=== PATIENT | female | born 1970 | race Caucasian/White ===

== ENCOUNTER 2018-07-25 12:45 | Inpatient (IN) | payer MEDICAID, OTHER ==
[~2018-07-25] VITALS: Ht 157.5 cm; Wt 85.4 kg
--- NOTE | 2018-07-25 13:20 | EN ---
Date/Time of Note Date/Time of Note DATE: 07/25/18 TIME: 13:19 ER Progress Note ED 3 medical screening examination - 48-year-old female presents with 3-day history right upper quadrant abdominal pain, nausea. No previous history of gallstones. Ultrasound and laboratory work initiated via provider in triage. MEGHAN COOK MD July 25, 2018 13:20
--- NOTE | 2018-07-25 13:42 | ERD ---
ER Documentation Chief Complaint Chief Complaint RUQ ABDOMINAL PAIN THAT RADIATES TO THE BACK WITH N/V SINCE WEDNESDAY. HPI The patient is a 48-year-old female, presenting to the ER because of right upper quad abdominal pain radiating to the back for the last 3 days worse today, also with vomiting of mostly mucus, nonbloody/nonbilious. She denies similar symptoms previously, fever, chills, neck pain, chest pain, edema, dysuria, yvrose rrhea. She does not smoke nor drink, LMP was July 01, 2018 Medical/surgical history: None ROS All systems reviewed and are negative except as per history of present illness. Medications Home Meds No Active Prescriptions or Reported Meds Allergies Allergies: Coded Allergies: No Known Drug Allergy (Verified Allergy, Unknown, 07/25/18) Physical Exam Vitals Vital Signs Date Temp Pulse Resp B/P (MAP) Pulse Ox O2 O2 Flow FiO2 Time Delivery Rate 07/25/18 99.7 90 18 166/77 98 13:01 (106) Physical Exam Const: No acute distress. Head: Atraumatic. Eyes: Normal Conjunctiva. ENT: Normal External Ears, Nose and Mouth. Neck: Full range of motion. No meningismus. Resp: Clear to auscultation bilaterally. Cardio: Regular rate and rhythm. Abd: Soft, non distended, normal bowel sounds, right upper quadrant tenderness, no RLQ/ rigidity/rebound/CVA tenderness Skin: No petechiae or rashes. Back: No midline or flank tenderness. Ext: No cyanosis, or edema. Neur: Awake and alert. No focal deficit Psych: Normal Mood and Affect. Result Diagram: 07/25/18 1331 07/25/18 1331 Results 24 hrs Laboratory Tests Test 07/25/18 13:31 07/25/18 13:38 White Blood Count 13.1 10^3/ul Red Blood Count 4.61 10^6/ul Hemoglobin 14.5 g/dl Hematocrit 43.9 % Mean Corpuscular Volume 95.2 fl Mean Corpuscular Hemoglobin 31.5 pg Mean Corpuscular Hemoglobin Concent 33.0 g/dl Red Cell Distribution Width 12.2 % Platelet Count 378 10^3/UL Mean Platelet Volume 9.8 fl Immature Granulocytes % 0.500 % Neutrophils % 76.1 % Lymphocytes % 17.0 % Monocytes % 5.0 % Eosinophils % 0.6 % Basophils % 0.8 % Nucleated Red Blood Cells % 0.0 /100WBC Immature Granulocytes # 0.060 10^3/ul Neutrophils # 10.0 10^3/ul Lymphocytes # 2.2 10^3/ul Monocytes # 0.7 10^3/ul Eosinophils # 0.1 10^3/ul Basophils # 0.1 10^3/ul Nucleated Red Blood Cells # 0.0 10^3/ul Sodium Level 140 mmol/L Potassium Level 4.0 mmol/L Chloride Level 104 mmol/L Carbon Dioxide Level 24 mmol/L Anion Gap 12 Blood Urea Nitrogen 12 mg/dl Creatinine 0.85 mg/dl Est Glomerular Filtrat Rate mL/min > 60 mL/min Glucose Level 104 mg/dl Calcium Level 9.2 mg/dl Total Bilirubin 0.5 mg/dl Direct Bilirubin 0.00 mg/dl Indirect Bilirubin 0.5 mg/dl Aspartate Amino Transf (AST/SGOT) 40 IU/L Alanine Aminotransferase (ALT/SGPT) 46 IU/L Alkaline Phosphatase 104 IU/L Total Protein 8.3 g/dl Albumin 4.2 g/dl Globulin 4.10 g/dl Albumin/Globulin Ratio 1.02 Lipase 63 U/L POC Beta HCG, Qualitative NEGATIVE Current Medications Medications Dose Sig/Krishna Start Time Status Last (Trade) Ordered Route PRN Stop Time Admin Dose Reason Admin Morphine 2 mg ONCE STAT 07/25/18 DC 07/25/18 Sulfate IV 14:04 14:10 (morphine) 07/25/18 14:06 Ondansetron 4 mg ONCE STAT 07/25/18 DC 07/25/18 HCl (Zofran IV 14:04 14:10 Inj) 07/25/18 14:06 Piperacillin 100 ml @ ONCE ONCE 07/25/18 DC 07/25/18 Sod/ 200 mls/hr IVPB 14:30 14:10 Tazobactam 07/25/18 14:59 Sod Sodium 1,000 ml @ Q1H ONCE 07/25/18 DC 07/25/18 Chloride 1,000 mls/hr IV 14:30 14:43 07/25/18 15:29 Procedures/MDM [place] [id number] Radiology Main Line: [phone] DIAGNOSTIC IMAGING REPORT Patient: WILMER RANDOLPH : 1970 Age: 48 Sex: F MR #: [id number] DOS: 07/25/18 1317 Ordering MD: MEGHAN COOK MD Location: E/R Room/Bed: PROCEDURE: US Abdomen (right upper quadrant). CLINICAL INDICATION: Abdominal pain TECHNIQUE: Multiple real-time longitudinal and transverse images of the right upper quadrant of the abdomen were acquired utilizing a curved array transducer. Images were reviewed on a high-resolution PACS workstation. COMPARISON: None FINDINGS: The liver is normal in size and echogenicity without focal mass or intrahepatic biliary dilatation. Stones and sludge are present in the gallbladder. The gallbladder wall is thickened measuring up to 5.5 mm. The gallbladder is distended. No intra or extrahepatic biliary dilatation is seen. The common bile duct measures 5.6 mm in maximal dimension. The visualized portions of the pancreas are unremarkable with obscuration of the tail of the pancreas. No free fluid is identified. The right kidney measures 8.9 cm in length. There is normal echogenicity within the right kidney. There is no perinephric fluid collection. No hydronephrosis, mass, or calculus is seen. IMPRESSION: 1. Gallbladder stones and sludge with gallbladder wall thickening, may represent acute calculus cholecystitis in the correct clinical setting. RPTAT: JJ .Isac Shah MD, MD Date Time Electronically viewed and signed by .Isac Shah MD, on 07/25/2018 13:54 .A/ CC: MEGHAN COOK MD [id number] MEDICAL MAKING DECISION: The patient is a 48-year-old female, presenting with acute cholecystitis, was treated with Zosyn IV for acute cholecystitis, morphine 2 mg IV, Dilaudid 0.5 mg IV for pain, Zofran 4 mg IV for nausea and 1 L normal saline for clinical dehydration with good response. The differential diagnoses considered include but are not limited to cholelithiasis, cholecystitis, choledocholithiasis, cholangitis, pancreatitis, hepatitis, gastritis, peptic ulcer disease, gastric ulcer, appendicitis, cystitis, diverticulitis, partial small bowel obstruction. Consultation: I discussed the patient with the on-call general surgeon Dr. Smith at 2:30 PM, who was made aware of the lab, the treatment, the patient condition and he accepted the consult Departure Diagnosis: Primary Impression: Cholecystitis Condition: Stable Comments I discussed the findings with the patient. I discussed the patient with Dr Fierro at 3:20pm , who was made aware of the lab, the treatment, the patient condition. The patient is admitted to [facility] Disclaimer: Inadvertent spelling and grammatical errors are likely due to EHR/dictation software use and do not reflect on the overall quality of patient care. Also, please note that the electronic time recorded on this note does not necessarily reflect the actual time of the patient encounter. SEN CABALLERO MD July 25, 2018 13:42
[2018-07-25] MEDS ORDERED: ONDANSETRON 4 MG INJ IV STA (14:04)
[2018-07-25] MEDS ORDERED: morphine 2 MG INJ IV STA (14:04)
[2018-07-25] MEDS ORDERED: PIPER-TAZO 3.375 GM IV (PMX) 100 ML IVPB ONE (14:30)
[2018-07-25] MEDS ORDERED: SOD CHLORIDE 0.9% 1,000 ML IV ONE (14:30)
[2018-07-25] MEDS ORDERED: HYDROmorphONE 0.5 MG/0.5 ML SYG IV STA (15:38)
--- NOTE | 2018-07-25 16:49 | CONS ---
Assessment/Plan Assessment/Plan Assessment/Plan (Daily) Acute cholecystitis Plan: Admit. Laparoscopic cholecystectomy tomorrow morning. I have discussed t he procedure, outcomes, expectations, alternatives and risks in detail with the patient who has an excellent understanding of the nature of her situation and agrees to the proposed plan of therapy as outlined. Consultation Date/Type/Reason Admit Date/Time Date of Consultation: July 25, 2018 Type of Consult General surgery Reason for Consultation Acute cholecystitis Date/Time of Note DATE: 07/25/18 TIME: 16:45 Hx of Present Illness The patient is an otherwise healthy 48-year-old female with no familial history of gallbladder disease. She presents to the emergency room with a 3-day history of midepigastric and right upper quadrant abdominal pain radiating to the back. In the emergency room she was noted to have an elevated white blood cell count, a tender right upper quadrant and abdominal ultrasound showing gallstones and gallbladder wall thickening compatible with acute cholecystitis. The patient has had no fevers, chills or jaundice. Review of systems: HEENT: Within normal limits Pulmonary: No history of asthma, pneumonia or shortness of breath Cardiac: No history of chest pain, [place] or arrhythmia Abdomen: As in the HPI. No previous abdominal surgery Extremity: Unremarkable Past Medical History Medical History: no pertinent history Home Meds No Active Prescriptions or Reported Meds Allergies: Coded Allergies: No Known Drug Allergy (Verified Allergy, Unknown, 07/25/18) Past Surgical History Past Surgical Hx: no surgical history Family History Significant Family History: no pertinent family hx Social History Alcohol Use: none Exam/Review of Systems Exam Vitals Vital Signs Date Temp Pulse Resp B/P (MAP) Pulse Ox O2 O2 Flow FiO2 Time Delivery Rate 07/25/18 71 18 137/74 100 Room Air 15:30 (95) 07/25/18 99.7 13:01 Constitutional: alert, oriented Psych: no complaints Head: normocephalic Eyes: nl conjunctiva ENMT: nl external ears & nose Neck: supple Respiratory: clear to auscultation Cardiovascular: regular rate and rhythm Gastrointestinal: tender (Tender right upper quadrant and a positive Holman sign) Musculoskeletal: nl extremities to inspection Extremities: normal pulses 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 Results Result Diagram: 07/25/18 1331 07/25/18 1331 Results 24hrs Laboratory Tests Test 07/25/18 13:31 07/25/18 13:38 White Blood Count 13.1 H Red Blood Count 4.61 Hemoglobin 14.5 Hematocrit 43.9 Mean Corpuscular Volume 95.2 Mean Corpuscular Hemoglobin 31.5 Mean Corpuscular Hemoglobin Concent 33.0 Red Cell Distribution Width 12.2 Platelet Count 378 Mean Platelet Volume 9.8 Immature Granulocytes % 0.500 H Neutrophils % 76.1 Lymphocytes % 17.0 Monocytes % 5.0 Eosinophils % 0.6 Basophils % 0.8 Nucleated Red Blood Cells % 0.0 Immature Granulocytes # 0.060 H Neutrophils # 10.0 H Lymphocytes # 2.2 Monocytes # 0.7 Eosinophils # 0.1 Basophils # 0.1 Nucleated Red Blood Cells # 0.0 Sodium Level 140 Potassium Level 4.0 Chloride Level 104 Carbon Dioxide Level 24 Anion Gap 12 Blood Urea Nitrogen 12 Creatinine 0.85 Est Glomerular Filtrat Rate mL/min > 60 Glucose Level 104 Calcium Level 9.2 Total Bilirubin 0.5 Direct Bilirubin 0.00 Indirect Bilirubin 0.5 Aspartate Amino Transf (AST/SGOT) 40 Alanine Aminotransferase (ALT/SGPT) 46 Alkaline Phosphatase 104 Total Protein 8.3 H Albumin 4.2 Globulin 4.10 H Albumin/Globulin Ratio 1.02 Lipase 63 POC Beta HCG, Qualitative NEGATIVE GARRY CRENSHAW MD July 25, 2018 16:49
[2018-07-25] MEDS ORDERED: PIPER-TAZO 3.375 GM IV (PMX) 100 ML IVPB SCH (17:30)
[2018-07-25 18:00] VITALS: BMI 12.7
--- NOTE | 2018-07-25 18:19 | HP ---
DATE OF ADMISSION: 07/25/2018 CHIEF COMPLAINT: Abdominal pain. HISTORY OF PRESENT ILLNESS: A 48-year-old female with unremarkable past medical history, presents to emergency room with complaint of abdominal pain in the midepigastric and right upper quadrant region for the last 2 to 3 days prior to admission. The patient reports that pain radiates to her back. S he has had mild nausea, but no vomiting. No fever, no chills. No hematemesis. No bright red blood per rectum or melena. Initial evaluation included ultrasound of the gallbladder. This showed gallst ones and sludge and gallbladder wall thickening. White blood cell count is elevated at 213,100. Bas ic metabolic panel and liver function tests were all within normal limits. Beta HCG was also negativ e. The patient was evaluated by Dr. Smith. PAST MEDICAL HISTORY: None. PAST SURGICAL HISTORY: None. MEDICATIONS PRIOR TO ADMISSION: None. FAMILY HISTORY: There is no family history of gallbladder disease. PHYSICAL EXAMINATION: GENERAL: Well-developed, well-nourished female who is in no apparent distress. VITAL SIGNS: Stable. She is afebrile. HEENT: Extraocular muscles are intact. Pupils are equal and reactive to light bilaterally. Sclerae are anicteric. Oropharynx is clear and moist. NECK: Supple. No JVD, no carotid bruits. LUNGS: Clear to auscultation bilaterally. CARDIAC: Regular rate and rhythm. No murmurs, rubs or gallops. ABDOMEN: Soft, right upper quadrant and midepigastric tenderness to palpation. Normoactive bowel so unds. EXTREMITIES: No clubbing, cyanosis or edema. NEUROLOGICAL: Grossly nonfocal. LABORATORY DATA: Hemoglobin was 14.5, platelet count of 378,000. ASSESSMENT: A 48-year-old female with acute cholecystitis. PLAN: Admit to med/surg. Keep n.p.o. IV fluid hydration. IV Zosyn. Pain control. Antiemetics. rn call center to OR in a.m. for laparoscopic cholecystectomy. DVT prophylaxis with bilateral SCDs. Dictated By: FRANCIS HASSAN MD SK/NTS Conf#: [id number] DID#: [id number] CC: SEN CABALLERO MD;*EndCC*
[2018-07-25 18:40] VITALS: BP 129/67; PULSE 79; RESP 17
[2018-07-25] MEDS: ONDANSETRON 4 MG INJ IV PRN (18:48)
[2018-07-25] MEDS: morphine 2 MG INJ IV PRN ×2 (18:48→21:42)
[2018-07-25] MEDS: DEXTROSE 5%-0.45% NACL 1,000 ML IV SCH (18:49)
[2018-07-25 20:00] VITALS: BP 133/70; PULSE 79; RESP 18
[2018-07-25 22:51] VITALS: Ht 157.5 cm; Wt 85.4 kg
[2018-07-26] VITALS (20 sets, daily range): BP systolic 113–163; BP diastolic 57–77; PULSE 68–112; RESP 16–20
[2018-07-26] MEDS: PIPER-TAZO 3.375 GM IV (PMX) 100 ML IVPB SCH ×4 (05:34→21:46)
[2018-07-26] MEDS: morphine 2 MG INJ IV PRN ×4 (05:34→23:38)
[2018-07-26] MEDS: DEXTROSE 5%-0.45% NACL 1,000 ML IV SCH ×3 (05:36→23:30)
[2018-07-26] MEDS: ONDANSETRON 4 MG INJ IV PRN ×2 (05:39→10:50)
[2018-07-26] MEDS ORDERED: SEVOFLURANE 15 MIN ONE (07:00)
--- NOTE | 2018-07-26 09:54 | PN ---
Date/Time of Note Date/Time of Note DATE: 07/26/18 TIME: 09:52 Subjective Doing well. Still having nausea requiring narcotics Objective Vitals Vital Signs Date Temp Pulse Resp B/P (MAP) Pulse Ox O2 O2 Flow FiO2 Time Delivery Rate 07/26/18 98.5 77 17 163/77 96 Room Air 07:40 (105) Intake and Output 07/25/18 07/25/18 07/26/18 1515:00 23:00 07:00 IntakeIntake Total 1200 ml 1100 ml BalanceBalance 1200 ml 1100 ml Clear to auscultation bilaterally Regular rate and rhythm Right upper quadrant tenderness to palpation normoactive bowel sounds No edema Nonfocal Results Result Diagram: 07/25/18 1331 07/25/18 1331 Medications Medications Current Medications Dextrose/Sodium Chloride 1,000 ml @ 100 mls/hr Q10H IV Last administered on 07/26/18at 05:36; Admin Dose 100 MLS/HR; Start 07/25/18 at 17:30 Ondansetron HCl (Zofran Inj) 4 mg Q4 PRN IV nausea Last administered on 07/26/18at 05:39; Admin Dose 4 MG; Start 07/25/18 at 17:30 Morphine Sulfate (morphine) 2 mg Q3 PRN IV moderate pain Last administered on 07/26/18at 08:39; Admin Dose 2 MG; Start 07/25/18 at 17:30 Piperacillin Sod/ Tazobactam Sod 100 ml @ 200 mls/hr Q8 IVPB Last administered on 07/26/18at 05:34; Admin Dose 200 MLS/HR; Start 07/26/18 at 05:00 VTE Prophylaxis Risk score (from Nsg)>0 risk: 2 SCD applied (from Nsg): Yes Lines/Catheters IV Catheter Type: Saline Lock De Luna in Place: No Assessment/Plan Assessment/Plan 48-year-old female with acute cholecystitis Moderate obesity Continue n.p.o. On-call to OR for FRANCIS Cotton MD July 26, 2018 09:54
--- NOTE | 2018-07-26 11:09 | PREAC ---
Date/Time of Note Date/Time of Note DATE: 07/26/18 TIME: 11:08 Anesthesia Eval and Record Evaluation Time Pre-Procedure Interview DATE: 07/26/18 TIME: 11:08 Age 48 Sex female NPO: 8 hrs Preoperative diagnosis Acute cholecystitis Planned procedure Laparoscopic cholecystectomy Past Medical History Past Medical History: Includes GI: Obesity Surgery & Anesthesia Issues No known issue Meds Anticoagulation: No Beta Kira within 24 hr: No Reason Beta Kira not given: Pt. not on B-Kira No Active Prescriptions or Reported Meds Current Medications Dextrose/Sodium Chloride 1,000 ml @ 100 mls/hr Q10H IV Last administered on at 05:36; Admin Dose 100 MLS/HR; Start 07/25/18 at 17:30 Ondansetron HCl (Zofran Inj) 4 mg Q4 PRN IV nausea Last administered on 07/26/18at 10:50; Admin Dose 4 MG; Start 07/25/18 at 17:30 Morphine Sulfate (morphine) 2 mg Q3 PRN IV moderate pain Last administered on 07/26/18at 08:39; Admin Dose 2 MG; Start 07/25/18 at 17:30 Piperacillin Sod/ Tazobactam Sod 100 ml @ 200 mls/hr Q8 IVPB Last administered on 07/26/18at 05:34; Admin Dose 200 MLS/HR; Start 07/26/18 at 05:00 Meds reviewed: Yes Allergies Coded Allergies: No Known Drug Allergy (Verified Allergy, Unknown, 07/25/18) Allergies Reviewed: Yes Labs/Studies Labs Reviewed: Reviewed by anesthesiologist Result Diagram: 07/25/18 1331 07/25/18 1331 Laboratory Tests 07/25/18 13:31 test: Negative Pre-procedure Exam Last vitals Vital Signs Date Temp Pulse Resp B/P (MAP) Pulse Ox O2 O2 Flow FiO2 Time Delivery Rate 07/26/18 98.5 77 17 163/77 96 Room Air 07:40 (105) Airway: Adequate mouth opening Mallampati: Mallampati II Teeth: Normal Lung: Normal Heart: Normal ASA Physical Status ASA physical status: 2 Emergency: None Planned Anesthetic General/MAC: ETT Planned Pain Management Parenteral pain med Pre-operative Attestations Prior to commencing anesthesia and surgery, the patient was re-evaluated, there was verification of: *The patient's identity *The results of appropriate recent lab work and preoperative vital signs *The above evaluation not changing prior to induction *Anesthetic plan, risk benefits, alternative and complications discussed with patient/family; questions answered; patient/family understands, accepts and wishes to proceed. KOBE HO MD July 26, 2018 11:09
[2018-07-26] MEDS ORDERED: GLYCOPYRROLATE 0.4 MG INJ ONE ×2 (11:45→12:04)
[2018-07-26] MEDS ORDERED: NEOSTIGMINE 3 MG/3 ML SYRINGE ONE ×2 (11:45→12:04)
[2018-07-26] MEDS ORDERED: PROPOFOL 20 ML ONE (11:45)
[2018-07-26] MEDS ORDERED: LIDOCAINE 2% (SDV) 5 ML INJ ONE (11:45)
[2018-07-26] MEDS ORDERED: SUCCINYLCHOLINE CHLORIDE 100 MG/5 ML SYG IV ONE (11:45)
[2018-07-26] MEDS ORDERED: ROCURONIUM 50 MG INJ ONE (11:45)
[2018-07-26] MEDS ORDERED: BUPIVACAINE 0.25%/EPI (SDV) 30 ML INJ ONE (11:47)
[2018-07-26] MEDS ORDERED: MEPERIDINE 100 MG INJ ONE (11:47)
[2018-07-26] MEDS ORDERED: METOCLOPRAMIDE 10 MG INJ ONE (12:04)
[2018-07-26] MEDS ORDERED: ONDANSETRON 4 MG INJ ONE (12:04)
--- NOTE | 2018-07-26 13:13 | OPR ---
Date/Time of Note Date/Time of Note DATE: 07/26/18 TIME: 13:08 Operative Report Procedure Date: July 26, 2018 Preoperative Diagnosis Acute cholecystitis Postoperative Diagnosis Acute cholecystitis Operation/Procedure Performed 1. Laparoscopic cholecystectomy 2. Placement of drain Surgeon Garry Crenshaw MD Server Administrator None Anesthesia Type: general Anesthesiologist: KOBE HO MD Estimated Blood Loss: other (Approximately 100 cc) Transfusion none Specimen Gallbladder and culture and sensitivity Grafts/Implants none Tubes/Drains #19 Round Eugenio Complications none Pt Condition Post Procedure: stable Disposition: PACU Indications Acute cholecystitis Procedure Description After satisfactory general endotracheal anesthesia was achieved, the abdomen was prepped and draped in the usual fashion. The abdomen was insufflated with carbo n dioxide placed through a Veress needle into a small umbilical hernia to 15 mmHg pressure. The Veress needle was removed and the umbilical incision extended to 5 mm through which a 5 mm trocar was placed through the hernia. A 5 mm 0 degree lens was placed. Laparoscopy showed an acutely inflamed edematous gallbladder. Under direct visualization a 12 mm epigastric trocar was placed as well as 2 more 5 mm right lateral abdominal trochars. The dome of the gallbladder was grasped and retracted superiorly. Reich's pouch was grasped and retracted inferolaterally. The hepatoduodenal ligament was carefully dissected between the gallbladder and the very well visualized common bile duct. The cystic duct was dissected circumferentially then triply hemoclipped and divided high at the junction of the gallbladder and the cystic duct. The cystic artery was identified immediately posteriorly. This was triply hemoclipped and divided between clips. A single peritoneal attachments to the gallbladder was divided over a clip. The gallbladder was then dissected from below using electrocautery dissection. The gallbladder was placed into an Endo Catch removed by the epigastric route. The gallbladder was so massively distended that the epigastric incision had to be extended to 4 cm to facilitate removal of his gallbladder. Hemostasis of the liver bed was excellent and irrigant now returned clear. Because of the infection a #19 round Eugenio drain was placed draining the right subhepatic space and gallbladder fossa and exited through the lateralmost puncture site where it was secured to the skin with a 2-0 nylon suture. The abdomen was then desufflated and all trochars were removed. The fascia of the epigastrium was closed with 3 sutures of #1 Vicryl. The skin punctures were infiltrated with 30 cc of point 2 5% Marcaine with epinephrine and closed with asher. Sponge and needle counts were reported as correct x2. GARRY CRENSHAW MD July 26, 2018 13:13
[2018-07-26] MEDS ORDERED: MEPERIDINE 25 MG INJ IV PRN (13:30)
[2018-07-26] MEDS ORDERED: METOCLOPRAMIDE 10 MG INJ IV PRN (13:30)
[2018-07-26] MEDS ORDERED: LABETALOL HCL 20MG INJ IV PRN (13:30)
[2018-07-26] MEDS ORDERED: EPHEDrine 25 MG/5 ML SYG IV PRN (13:30)
[2018-07-26] MEDS ORDERED: HYDROmorphONE 1 MG/5 ML IV SYRINGE IV PRN ×3 (13:30)
[2018-07-26] MEDS ORDERED: MIDAZOLAM 1 MG/ML 2 ML INJ IV PRN (13:30)
[2018-07-26] MEDS ORDERED: FENTAnyl 50 MCG/ML VIAL IV PRN ×3 (13:30)
[2018-07-26] MEDS ORDERED: ONDANSETRON 4 MG INJ IV PRN ×2 (13:30)
[2018-07-26] MEDS ORDERED: morphine 2 MG INJ IV PRN (13:30)
[2018-07-26] MEDS ORDERED: OXYCODONE/ACETAMINOPHEN (5/325) TAB PO PRN ×4 (13:30)
[2018-07-26] MEDS ORDERED: DIPHENHYDRAMINE 50 MG INJ IV PRN (13:30)
[2018-07-26] MEDS ORDERED: hydrALAzine 20 MG INJ IV PRN (13:30)
--- NOTE | 2018-07-26 16:17 | PAC ---
Date/Time of Note Date/Time of Note DATE: 07/26/18 TIME: 16:16 Post-Anesthesia Notes Post-Anesthesia Note Last documented vital signs Vital Signs Date Temp Pulse Resp B/P (MAP) Pulse Ox O2 O2 Flow FiO2 Time Delivery Rate 07/26/18 98.4 73 17 141/68 92 Room Air 14:36 (92) 07/26/18 6.0 13:18 Activity: WNL Respiratory function: WNL Cardiovascular function: WNL Mental status: Baseline Pain reasonably controlled: Yes Hydration appropriate: Yes Nausea/Vomiting absent: Yes KOBE HO MD July 26, 2018 16:17
[2018-07-27 01:15] VITALS: BP 104/56; PULSE 83; RESP 18
[2018-07-27] MEDS: DEXTROSE 5%-0.45% NACL 1,000 ML IV SCH ×2 (01:51→09:30)
[2018-07-27] MEDS: PIPER-TAZO 3.375 GM IV (PMX) 100 ML IVPB SCH ×2 (05:35→13:42)
[2018-07-27 07:38] VITALS: BP 116/60; PULSE 90; RESP 16
[2018-07-27] MEDS ORDERED: HYDR-4011 PO (08:55)
--- NOTE | 2018-07-27 08:56 | PDOCDIS ---
Discharge Instructions CONDITION Ocsep6Hm Patient Condition: [id number] Good HOME CARE INSTRUCTIONS: [id number] Diet Instructions: [id number] Regular ACTIVITY: [id number] Activity Restrictions: [id number] Slowly Increase Activity Avoid heavy lifting FOLLOW UP/APPOINTMENTS Follow-up Plan pcp [address] Smith 5 days FRANCIS HASSAN MD July 27, 2018 08:56
[2018-07-27] MEDS ORDERED: POTASSIUM CHLORIDE (SR) 20 MEQ TAB PO STA (10:07)
[2018-07-27 13:54] VITALS: BP 125/74; PULSE 98; RESP 16
--- NOTE | 2018-07-27 21:12 | DS ---
DATE OF ADMISSION: 07/25/2018 DATE OF DISCHARGE: 07/27/2018 DISCHARGE DIAGNOSES: 1. Acute cholecystitis. 2. Status post laparoscopic cholecystectomy. HOSPITAL COURSE: A 48-year-old female with unremarkable past medical history who presented to emerge ncy room with complaint of midepigastric and right upper quadrant abdominal pain. The patient was di agnosed with acute cholecystitis. She was seen in consultation by Dr. Crenshaw and underwent laparosco pic cholecystectomy. There were no intraoperative or postoperative complications. Repeat liver func tion tests were within normal limits postoperatively. A DIANA drain was placed. The patient is in stab le condition for discharge. Case was discussed with Dr. Crenshaw. He will remove the DIANA drain as outp atient in 5 days. Emerson was prescribed for pain control. PLAN: 1. Discharge home with home health nurse. 2. Follow up with PCP in 1 week. 3. Follow up with Dr. Crenshaw in 5 days. Dictated By: FRANCIS HASSAN MD SK/NTS Conf#: [id number] DID#: [id number] CC: GARRY CRENSHAW MD;*EndCC*
== END 2018-07-27 16:20 | disposition home health service (06) | DRG 419 ==
LOC: E/R 12:45 → 2NE 15:21
PROVIDERS: ADMIT Internal Medicine; ATTEND Internal Medicine
PROC: 0FT44ZZ Resection of Gallbladder, Percutaneous Endoscopic Approach (ICD-10-PCS; principal; 2018-07-26 12:00)
DX: K81.0 Acute cholecystitis (principal); E66.9 Obesity, unspecified; Z68.34 Body mass index [BMI] 34.0-34.9, adult
CPT/HCPCS: 36415; 76705; 80053; 81001; 81025; 83690; 85025; 87070; 87075; 87102; 88304; 96365; 96375; J1170; J2175; J2270; J2405; J2543; J2710; J2765; J7030; J7042